=== PATIENT | female | born 1985 | race African-American/Black ===

== ENCOUNTER 2018-07-22 00:01 | Emergency (ER) | payer OTHER ==
[~2018-07-22] VITALS: Ht 180.3 cm; Wt 137.0 kg
[2018-07-22 00:05] VITALS: Ht 180.3 cm; Wt 137.0 kg
[2018-07-22 01:54] VITALS: BP 130/73
== END 2018-07-22 01:54 | disposition home or self-care (01) ==
LOC: ED 00:01
DX: J36 Peritonsillar abscess (principal); J45.909 Unspecified asthma, uncomplicated
CPT/HCPCS: J0696; J1100; J7030